=== PATIENT | female | born 1985 ===

== ENCOUNTER 2018-12-15 09:56 | Outpatient (CLI) | payer OTHER ==
[~2018-12-15] VITALS: Ht 149.9 cm; Wt 68.0 kg
== END 2018-12-15 10:10 | disposition home or self-care (01) ==
LOC: OFIC 805 09:56
DX: K11.6 Mucocele of salivary gland (principal)

== ENCOUNTER 2018-12-31 08:37 | Outpatient (CLI) | payer OTHER ==
[~2018-12-31] VITALS: Ht 121.9 cm; Wt 68.0 kg
== END 2018-12-31 09:00 | disposition home or self-care (01) ==
LOC: OFIC 805 08:37
DX: K11.6 Mucocele of salivary gland (principal)

== ENCOUNTER 2019-02-04 11:48 | Outpatient (CLI) | payer OTHER | END 2019-02-04 15:00 | disposition home or self-care (01) | LOC: OFIC 805 11:48 | DX: K11.6 Mucocele of salivary gland (principal) ==